=== PATIENT | male | born 1965 | race Caucasian/White ===

== ENCOUNTER 2019-08-05 11:32 | Emergency (ER) | payer BC ==
[~2019-08-05] VITALS: Ht 185.4 cm; Wt 122.7 kg
[2019-08-05 12:07] LABS: BASO # 0.1 (0.0-0.2); BASO % 0.8 % (0.0-2.0); EOS # 0.1 (0.0-0.7); GRAN # 4.2 (1.4-6.5); GRAN % 63.5 % (42.2-75.2); HEMATOCRIT 43.5 % (42.0-52.0); HEMOGLOBIN 14.3 g/dl (13.5-18.0); LYMPH # 1.7 (1.2-3.4); LYMPH % 25.8 % (20.0-51.0); MEAN CELL VOLUME 96 fl (80.0-100.0); MEAN CORPUSCULAR HEMOGLOBIN 32 pg (27.0-31.0); MEAN CORPUSCULAR HGB CONC 33 g/dl (33.0-37.0); MEAN PLATELET VOLUME 10.3 fl (7.4-10.4); MONO # 0.5 (0.1-0.6); PLATELET COUNT 261 K/mm3 (130-400); RED BLOOD COUNT 4.52 M/mm3 (4.20-5.60); REDCELL DISTRIBUTION WIDTH-CV 12.2 % (11.5-14.5)
[2019-08-05 12:15] LABS: ALANINE AMINOTRANSFERASE 22 U/L (4-49); ALBUMIN 4.6 gm/dL (3.5-5.0); ALKALINE PHOSPHATASE 62 U/L (50-136); ANION GAP 11 mmol/L (7-16); AST,SGOT 28 U/L (15-37); BILIRUBIN,TOTAL 0.9 mg/dL (0.0-1.0); BLOOD UREA NITROGEN 10 mg/dL (9-20); CALCIUM 9.3 mg/dL (8.4-10.2); CARBON DIOXIDE 28 mmol/L (22-30); CHLORIDE 99 mmol/L (98-107); CREATININE, serum 0.88 (0.66-1.25); GLUCOSE 163 mg/dL (74-106); LIPASE 52 U/L (23-300); POTASSIUM 3.7 mmol/L (3.4-5.0); SODIUM 138 mmol/L (137-145); TOTAL PROTEIN 7.6 gm/dL (6.4-8.2)
[2019-08-05] MEDS ORDERED: NORVASC 10MG10 MG PO (12:17)
[2019-08-05] MEDS ORDERED: HYZAAR 12.5 MG-1 TAB PO (12:18)
[2019-08-05] MEDS ORDERED: ASPIRIN 81M81 MG/TA2 PO (12:18)
[2019-08-05] MEDS ORDERED: VITAMINC1000TA (12:19)
[2019-08-05 12:26] LABS: INR 0.9 (0.8-3.0); PROTHROMBIN TIME 10.5 SECONDS (9.7-12.8)
[2019-08-05 12:29] LABS: TROPONIN-I < 0.012 ng/mL (0.000-0.035)
[2019-08-05 16:38] VITALS: BP 133/84; PULSE 75; TEMP 98
== END 2019-08-05 16:40 | disposition home or self-care (01) ==
LOC: COL.ER 11:32
PROVIDERS: Emergency Medicine
DX: R53.81 Other malaise (principal); I10 Essential (primary) hypertension
CPT/HCPCS: J7030; Q9967